=== PATIENT | female | born 1960 | race Caucasian/White ===

== ENCOUNTER → 2024-06-13 | Outpatient (CLI) | payer MEDICARE, BC ==
[~2024-06-13] MED LIST: ALEVE220 MG PO; BYSTOLIC10 MG PO; EFFIENT10 M1 PO; GOOD SENSE ASPI81 M1 PO; LIPITOR40 MG PO; LISINOPRIL5 MG PO; NITROGLYCERIN0.4 MG SL; PRILOSEC 20MG20 MG PO; PROBIOTIC FORMU1 CAP PO; ZYRTEC5 M1 PO
== END ==
LOC: AMSURD 10:02
DX: I25.10 Atherosclerotic heart disease of native coronary artery without angina pectoris (principal)